=== PATIENT | female | born 1970 | race Caucasian/White ===

== ENCOUNTER 2020-10-04 08:36 | Outpatient (NON) | payer OTHER, SELFPAY ==
[2020-10-04 22:24] LABS: SARS-CoV-2 RNA PCR Negative
== END 2020-10-04 08:37 ==
PROVIDERS: PCP Family Medicine; Visit Provider Nurse Practitioner Family
DX: R68.89 Other general symptoms and signs (principal); Z20.822 Contact with and (suspected) exposure to COVID-19
CPT/HCPCS: C9803; U0003; U0005

== ENCOUNTER 2020-11-29 17:27 | Outpatient (CLI) | payer OTHER, SELFPAY | END 2020-11-29 17:28 | disposition home or self-care (01) | LOC: ANHCOVIDVC 17:27 | PROVIDERS: PCP Family Medicine | DX: Z23 Encounter for immunization (principal) | CPT/HCPCS: 0001A; 91300 ==

== ENCOUNTER 2020-12-16 12:30 | Outpatient (RCR) | payer OTHER, SELFPAY ==
--- NOTE | 2020-11-12 11:29 | PTOPEVAL ---
PHYSICAL THERAPY EVALUATION AND PLAN OF CARE 11-12-20 Thank you for referring Luiza Zaidi to [facility] for vestibular therapy. She is scheduled to be seen for therapy? 1-2 x/week for 5 weeks. Please review, sign, date and return this plan of care NARAYAN. I agree with and certify that the following plan of care is medically necessary. Referring Physician Date Attending Provider: Glen Reyes MD *PT Outpatient Evaluation Document 11/12/20 10:09 NIRMAL (Rec: 11/12/20 11:29 NIRMAL [id number]) Outpatient Past Medical History Past Medical History Source of Past Medical History Patient Neurological History Hx Neurological Disorders No Significant History Cardiovascular History Hx Cardiac Disorders No Significant History Respiratory History Hx Respiratory Disorders No Significant History Gastrointestinal History Hx Other Gastrointestinal Disorders Yes: gluten intolerance Genitourinary History Hx Genitourinary Disorders No Significant History Musculoskeletal History Hx Musculoskeletal Disorders No Significant History Hematological History Hx Hematological Disorders No Significant History Endocrine History Hx Endocrine Disorders No Significant History HEENT History Hx HEENT Disorders No Significant History Integumentary History Hx Skin Disorders No Significant History Reproductive History Hx Hysterectomy Yes Psychosocial History Hx Depression Yes Other History Hx Other Medical Conditions Yes: COVID negative, but had some virus & illness Gadiel Evaluation Information Problem Diagnosis viral/ vestibular neuritis Onset Sep 23, 2020 Prior Level of Function Activity Level (Last 3 Months) 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; Speech Therapist Activity of Daily Living Ability Independent Indoor/Home Mobility Independent Community Mobility Independent Stairs Ability Independent Functional Cognition (Planning, Shopping Independent , Taking Medications) Comments Additional Prior Level of Function able to do things in AM, as do Comments more, dizziness increases and cannot do afternoon tasks as well; after ~ 20 min rest, can get up and continue tasks; previously very active lifestyle--daily fitness activity, yoga and always on the go; Pain Assessment Timing of Pain Assessment Timing of Pain Assessment Assessment Self Report Self Report Pain Level 0 Pain Score Pain Score 0: Self Report Vestibular
--- NOTE | 2020-11-22 14:46 | PCPTNOTE ---
Cancelled scheduled appointment this date due to , Patient that she remembered that several months ago, after she had a neck adjustment, and that she intense pain/muscle spasm at the base of her skull. Reported she had increased nausea, and was tired the rest of the day after her last session. Reported increased symptoms for 3 days after last session, and on Wednesday had to melzine. Also, reported that she was only able to do her exercises twice that last a few days. Reported her ears feel very full, and feels like she is almost about to spinning today. After talking to patient and therapist, it was decided to hold therapy today.
--- NOTE | 2020-11-26 12:36 | PCPTNOTE ---
Patient called & cancelled scheduled appointment this date due to still not feeling well.
--- NOTE | 2020-12-09 15:20 | PCPTNOTE ---
pt called and left message---have to go out of town due to mother in law ill; she requested I call her; I called and left a voice mail message this AM;
--- NOTE | 2020-12-16 13:33 | PTOPEVAL ---
PHYSICAL THERAPY RE-EVALUATION AND UPDATED PLAN OF CARE 12-16-20 Refer to the clinical summary for her status at today's reevaluation, compared to the initial evaluation. She has made some improvements, but limited due to only having 3 sessions. Continue PT 1x/week for 6 weeks. Thank you for referring Luiza Zaidi to [facility] Please review, sign, date and return this updated plan of care [facility]. I agree with and certify that the following plan of care is medically necessary. Referring Physician Date Attending Provider: Glen Reyes MD Protocol: Document 12/16/20 12:35 NIRMAL (Rec: 12/16/20 13:33 NIRMAL [id number]) Assessment Status Re-evaluation Subjective Information Luiza reports: feel like not Query Text:As Reported By Patient/ making some progress with Family dizziness; had to travel to [place], on plane and was able to do OK for few days, then when home crashed few days; took meclizine on flight; more problems with concentrating, on TV shows, conversations; brain tired and have to rest and sleep at times, feel like elephant sitting on my brain; still nausea and dizziness, with full ears; have had a lapse in memory, when asked what my address was; when traveling, went to turn after getting luggage and turned/ loss of balance; lately have been sleeping about 10 hours/night, up about 2x/night bathroom or worrying about things and cannot sleep; lately have been napping 30-60 minutes (her norm sleep time is 8 hours in bed) With home tasks-- on good day, can do morning tasks, sometimes later day things cannot do-- sometimes cannot make dinner; generally about 2-3:00, have to rest; tolerance with reading 2-3 pages at best; watch TV general movie 3 hour- is better; problems with kitchen tasks, moving R/L with head and body and quick turns;
--- NOTE | 2020-12-25 09:42 | PCPTNOTE ---
pt called and left a message, wants her to hold PT for now, is going to have further testing performed;
--- NOTE | 2021-01-31 11:29 | PCPTNOTE ---
PHYSICAL THERAPY DISCHARGE 01-31-21 Attending Provider: Glen Reyes MD Patient:Luiza Zaidi Date of :1970 Mrs. Zaidi called on 12-24-[address] told her to hold PT treatment due to further testing. There has not been any further contact since then, therefore she will be discharged at this time. The goals were not addressed. Luiza has received 3 PT sessions, from November 12 to December 16, for the diagnosis of vestibular therapy. Thank you for referring Luiza to [facility]. Please review, sign, date and return this discharge summary NARAYAN. I have been updated about the patient's current status and I agree with discharge from the above service at this time. Referring Physician Date
== END 2021-01-28 10:27 | disposition home or self-care (01) ==
LOC: ANHPT 12:30
PROVIDERS: PCP Family Medicine; Referring Provider Otolaryngology; Visit Provider Otolaryngology
DX: R42 Dizziness and giddiness (principal); H93.13 Tinnitus, bilateral
CPT/HCPCS: 97110; 97161

== ENCOUNTER 2020-12-20 17:33 | Outpatient (CLI) | payer OTHER, SELFPAY | END 2020-12-20 17:34 | disposition home or self-care (01) | LOC: ANHCOVIDVC 17:33 | PROVIDERS: PCP Family Medicine | DX: Z23 Encounter for immunization (principal) | CPT/HCPCS: 0002A; 91300 ==

== ENCOUNTER → 2021-01-02 12:05 | Outpatient (CLI) | payer OTHER, SELFPAY ==
--- NOTE | ~2021-01-02 | MR_ITS ---
EXAMINATION: MR brain/brain stem wo/w con DATE: 01/02/2021 13:31 INDICATION: Dizziness. Vertigo. TECHNIQUE: Magnetic resonance imaging (MRI) of the brain and brainstem was performed without and with 14 mL MultiHance intravenous contrast. Sequences included sagittal and axial T1-weighted FSE, axial diffusion-weighted FS EPI, axial T2*-weighted GRE, axial T2-weighted FLAIR Propeller, axial T2-weight ed Propeller, small apysa-zf-qqym coronal FIESTA, small riqjo-ml-qluo coronal T1-weighted FSE, and sm all rpoqr-hb-nosa axial T1-weighted SPGR. Postcontrast sequences included axial T1-weighted FSE, smal l fobgi-tt-bxby coronal T1-weighted FSE, and small lqjgh-we-beqc axial T1-weighted SPGR. Apparent dif fusion coefficient (ADC) maps were created. COMPARISON: None. FINDINGS: There is no intracranial hemorrhage, acute infarction, or abnormal intracranial mass lesion . 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 The ventricles are normal in size. Th e orbits are normal. The paranasal sinuses are clear. The internal auditory canals and inner and midd le ears are normal. The mastoid air cells are normal. IMPRESSION: 1. Normal brain. Reviewed, dictated and finalized at location B. IMPRESSION: 1. Normal brain.
[2021-01-02 12:52] LABS: Estimated Glomerular Filt Rate > 60
== END ==
PROVIDERS: PCP Family Medicine; Visit Provider Otolaryngology
DX: H81.319 Aural vertigo, unspecified ear (principal)
CPT/HCPCS: 70553; A9577

== ENCOUNTER 2021-02-05 07:47 | Outpatient (CLI) | payer OTHER, SELFPAY | END 2021-02-05 07:48 | disposition home or self-care (01) | LOC: ANHAUDIO 07:49 | PROVIDERS: PCP Family Medicine; Visit Provider Otolaryngology | DX: H81.319 Aural vertigo, unspecified ear (principal) | CPT/HCPCS: 92537; 92540; 92546 ==

== ENCOUNTER → 2021-11-27 15:48 | Outpatient (CLI) | payer OTHER, SELFPAY ==
--- NOTE | ~2021-11-27 | MM_ITS ---
EXAMINATION: MM screening [facility] BI w osei HISTORY: Screening mammogram TECHNIQUE: Craniocaudal and mediolateral oblique 3-D tomosynthesis images were obtained and synthetic 2-D images were generated. CAD analysis was submitted and interpreted. COMPARISON: 07/15/2018, 01/08/2016 BREAST PARENCHYMAL COMPOSITION: There are scattered areas of fibroglandular density. FINDINGS: Scattered benign-appearing calcifications are present. There is no suspicious mass, calcifi cation, or architectural distortion to suggest malignancy in either breast. There has been no suspici ous interval change. IMPRESSION: 1. No mammographic evidence of malignancy. 2. Recommend routine screening mammography in one year. BI-RADS Category 2: Benign finding(s). Reviewed, dictated and finalized at location A.
== END ==
PROVIDERS: PCP Family Medicine; Visit Provider Family Medicine
DX: Z12.31 Encounter for screening mammogram for malignant neoplasm of breast (principal)
CPT/HCPCS: 77063; 77067

== ENCOUNTER 2022-11-03 10:48 | Day surgery (SDC) | payer OTHER, SELFPAY ==
[2022-08-12 07:58] VITALS: BMI 25.9
[2022-10-26 10:42] VITALS: BMI 25.7
--- NOTE | 2022-11-02 16:02 | P.PNAN_ITS ---
Anes - Initial Pre Proc Eval Procedure: Operation Date: 11/03/22 12:30 Proposed Procedures p Screening Colonoscopy - Jovan Juares MD Date/Time: 11/02/22 16:02 Surgeon: Jovan Juares MD Pre Op Diagnosis: Neoplasm Screening Patient Data Age: 51 Gender: F Height: 1.6 m Weight: 66 kg Allergies Allergy/AdvReac Type Severity Reaction Status Date / Time gluten Allergy Unknown Swelling Verified 11/03/22 11:17 Home Medications Medication Instructions Recorded Confirmed Type meclizine 25 mg chewable tablet 25 mg PO TID PRN dizziness #30 tabs 10/15/20 11/03/22 Rx loratadine 10 mg tablet (Claritin) 10 mg PO DAILY 07/29/21 11/03/22 History sodium,potassium,mag sulfates 17.5 See Rx Instructions PO .COMPLEX 08/12/22 11/03/22 Rx gram-3.13 gram-1.6 gram oral soln #354 mL (Suprep Bowel Prep Kit) bupropion HCl 150 mg 24 hr tablet, 300 mg PO QAM 10/26/22 11/03/22 History extended release Patient hx anesthesia problems: none Family hx anesthesia problems: none Results Review: All pre-operative results and documents have been reviewed as part of the pre- operative evaluation. [facility] Past Medical History Medical History Depression Environmental allergies History of gluten sensitivity Vertigo Vestibular neuritis Vitamin D deficiency Surgical History Surgical History History of vaginal hysterectomy (~2012) Family History Family History Father Family history of thyroid disease Mother Family history of thyroid disease Grandparent Cerebrovascular accident Family history of malignant neoplasm Family history of malignant neoplasm of breast Other Family history of arthritis Social History Social History Smoking status: Never smoker Alcohol intake: current Alcohol use details: rarely Substance use: never Substance use type: does not use Living arrangements: with family Occupation/Education: retired Gender identity (if verbalized by the patient): Female Sexual Orientation (if Verbalized by the Patient): Straight or Heterosexual Spiritual care concerns: No Agree to blood products: Yes P[place]o - [place] Final PreProcedure Day of Procedure 11/02/22 16:02 Patient weight: overweight Heart: regular rate and rhythm Lungs: clear to auscultation Airway: Mallampati scale class II Neurological: alert and oriented Last oral intake: >/= 8 hours ASA classification: II Emergent: no Anesthetic plan: proceed Anesthesia type and monitoring: general GIVS and standard monitoring Results Review: All pre-operative results and documents have been reviewed as part of the pre- operative evaluation. Informed Consent: The patient's anesthetic plan and its attendant risks and benefits were discussed with the patient/family/POA. Questions were solicited and answers provided to the satisfaction of the patient/family/POA.
[2022-11-03 11:19] VITALS: BP 106/79; PULSE 70; RESP 20; TEMP 36.8; O2SAT 98
[2022-11-03] MEDS: LACTATED RINGERS 1,000 ML 150 ML IV CONT (11:28)
--- NOTE | 2022-11-03 12:54 | PM.HPGS ---
History of Present Illness History of Present Illness Consent: Risks, benefits, and alternatives have been discussed and questions answered. Patient agrees to proceed with procedure. Chief complaint: Neoplasm Screening Narrative: Luiza Zaidi is a 51 year old female Presents for screening colonoscopy. Patient's current weight appetite and bowel movements are normal. Patient denies abdominal pain. She has had no bleeding. Family history noncontributory. Patient presents today for neoplasia screening colonoscopy. Patient reports 10 years ago was found to be gluten intolerant. She has been on a gluten free diet doing well after 10 years. Review of Systems Review of Systems: Review of systems is noncontributory. [facility] Past Medical History Medical History Depression Environmental allergies History of gluten sensitivity Vertigo Vestibular neuritis Vitamin D deficiency Surgical History Surgical History History of vaginal hysterectomy (~2012) Family History Family History Father Family history of thyroid disease Mother Family history of thyroid disease Grandparent Cerebrovascular accident Family history of malignant neoplasm Family history of malignant neoplasm of breast Other Family history of arthritis Social History Social History Smoking status: Never smoker Alcohol intake: current Alcohol use details: rarely Substance use: never Substance use type: does not use Living arrangements: with family Occupation/Education: retired Gender identity (if verbalized by the patient): Female Sexual Orientation (if Verbalized by the Patient): Straight or Heterosexual Spiritual care concerns: No Agree to blood products: Yes Meds Home Medications and Allergies Home Medications Medication Instructions Recorded Confirmed Type meclizine 25 mg chewable tablet 25 mg PO TID PRN dizziness #30 tabs 10/15/20 11/03/22 Rx loratadine 10 mg tablet (Claritin) 10 mg PO DAILY 07/29/21 11/03/22 History sodium,potassium,mag sulfates 17.5 See Rx Instructions PO .COMPLEX 08/12/22 11/03/22 Rx gram-3.13 gram-1.6 gram oral soln #354 mL (Suprep Bowel Prep Kit) bupropion HCl 150 mg 24 hr tablet, 300 mg PO QAM 10/26/22 11/03/22 History extended release Allergies Allergy/AdvReac Type Severity Reaction Status Date / Time gluten Allergy Unknown Swelling Verified 11/03/22 11:17 Vital Signs Vital Signs - 24 hr 11/03/22 11:19 Temperature 98.3 F Pulse Rate 70 Respiratory Rate 20 Blood Pressure 106/79 Pulse Oximetry 98 Oxygen Delivery Room Air Exam Narrative: physical exam reveals patient to be alert. Vital signs stable. HEENT exam is unremarkable. Patient is anicteric. Lungs are clear to auscultation and percussion. Heart is without murmur or extra sounds. Abdomen bowel sounds present soft nontender with no organomegaly. Digital external rectal exam normal. Assessment and Plan Assessment and plan (1) Encounter for screening colonoscopy: Code(s): Z12.11 - Encounter for screening for malignant neoplasm of colon Status: Acute Assessment and Plan: Patient presents today for screening colonoscopy. She appears to be at average risk for colon polyps. Further recommendations may be given after endoscopy.
[2022-11-03 13:16] VITALS: BP 93/59; PULSE 67; RESP 12; O2SAT 99
[2022-11-03 13:26] VITALS: BP 100/63; PULSE 71; RESP 18; O2SAT 100
[2022-11-03 13:36] VITALS: BP 102/66; PULSE 68; RESP 18; O2SAT 100
--- NOTE | 2022-11-03 14:18 | WPDANESPN ---
Anes - Prog Note Post-Op Date/Time: 11/03/22 14:18 Cardiovascular status: normal Respiratory status: normal Airway patency: baseline Mental status: baseline Post-Op hydration status: normal Vital Signs: Last Vital Signs Temp 36.8 C 11/03/22 11:19 Pulse 68 11/03/22 13:36 Resp 18 11/03/22 13:36 BP 102/66 11/03/22 13:36 Pulse Ox 100 11/03/22 13:36 O2 Del Method Room Air 11/03/22 13:36 Pain Score (VAS): 0 I/O: Intake & Output 11/02/22 11/03/22 11/03/22 23:59 07:59 15:59 Intake Total 600 Balance 600 Post-procedural complaints: none Patient Feedback: Patient satisfied with anesthetic care. Other Findings: Patient vital signs back to baseline. Patient denies nausea and vomiting. Patient's pain under control. Patient OK for discharge.
== END 2022-11-03 13:50 | disposition home or self-care (01) ==
PROVIDERS: PCP Family Medicine; Visit Provider Internal Medicine Gastroenterology
PROC: 0DJD8ZZ Inspection of Lower Intestinal Tract, Via Natural or Artificial Opening Endoscopic (ICD-10-PCS; CPT 45378; principal; 2022-11-03 12:30)
DX: Z12.11 Encounter for screening for malignant neoplasm of colon (principal)
CPT/HCPCS: 45378

== ENCOUNTER 2024-01-26 08:37 | Outpatient (CLI) | payer OTHER, SELFPAY ==
[2024-01-26 19:13] LABS: Basophils Percent Auto 0.5 % (0.2-1.2); Eosinophils Absolute Auto 0.1 K/mm3 (0-0.3); Eosinophils Percent Auto 1.3 % (0-4.4); Hematocrit 44.8 % (37.0-47.0); Immature Granulocyte Absolute 0.02 K/mm3 (0.00-0.031); Immature Granulocyte Percent A 0.4 % (0-0.5); Lymphocytes Percent Auto 34.7 % (18.3-44.2); Mean Corpuscular HGB Conc 33.5 g/dl (32-36); Mean Corpuscular Hemoglobin 31.2 pg (26-34); Mean Corpuscular Volume 93.1 fl (80-100); Mean Platelet Volume 10.1 fl (7.4-10.4); Monocytes Absolute Auto 0.3 K/mm3 (0.1-0.6); Monocytes Percent Auto 5.7 % (2.6-8.5); Neutrophils Absolute Auto 3.1 K/mm3 (1.3-6.7); Neutrophils Percent Auto 57.4 % (45.5-73.1); Platelet Count Result 150 k/mm3 (150-375); Red Blood Count 4.81 M/mm3 (4.2-5.4); Red Cell Distribution Width 12.5 % (11.5-14.5); White Blood Count 5.5 K/mm3 (4.5-10.0)
[2024-01-26 19:25] LABS: Alanine Aminotransferase 20 U/L (6-35); Albumin Level 4.2 g/dL (3.5-5.1); Alkaline Phosphatase 73 U/L (38-126); Anion Gap 3 mmol/L (4-12); Aspartate Amino Transferase 24 U/L (14-36); Bilirubin,Total 0.4 mg/dL (0.2-1.3); Blood Urea Nitrogen 19 mg/dL (7-17); Carbon Dioxide 28 mmol/L (22-30); Chloride 106 mmol/L (98-107); Cholesterol 189 mg/dL (0-200); Estimated Glomerular Filt Rate > 60; Glucose 91 mg/dL (65-110); HDL Direct 87 mg/dL; Sodium 137 mmol/L (137-145); Triglycerides 100 mg/dL (<150)
[2024-01-26 19:28] LABS: Vitamin D 25 Hydroxy 52.6 ng/mL
[2024-01-26 19:39] LABS: LDL Cholesterol Direct 69 mg/dL
[2024-02-04 16:54] LABS: Estrogen 341 pg/mL
== END 2024-01-26 08:38 | disposition home or self-care (01) ==
LOC: ANHGOSHLAB 08:38
PROVIDERS: PCP Family Medicine; Visit Provider Nurse Practitioner Family
DX: F32.9 Major depressive disorder, single episode, unspecified (principal); R53.83 Other fatigue; Z13.220 Encounter for screening for lipoid disorders; E53.8 Deficiency of other specified B group vitamins; E55.9 Vitamin D deficiency, unspecified; Z79.899 Other long term (current) drug therapy; Z13.29 Encounter for screening for other suspected endocrine disorder
CPT/HCPCS: 36415; 80053; 80061; 82306; 82607; 82672; 84443; 85025